=== PATIENT | male | born 1995 | race Two or more races ===

== ENCOUNTER 2023-06-24 23:10 | Emergency (ER) | payer BC ==
[~2023-06-24] VITALS: Ht 175.3 cm; Wt 86.2 kg
[2023-06-24 23:47] VITALS: BP 112/71; TEMP 97.6
[2023-06-25 01:07] LABS: APPEARANCE,URINE CLEAR (CLEAR); BILIRUBIN,URINE NEGATIVE (NEGATIVE); BLOOD, URINE NEGATIVE Ery/uL (NEGATIVE); COLOR,URINE YELLOW (YELLOW); KETONES,URINE NEGATIVE (NEGATIVE); LEUKOCYTE ESTERASE ,URINE NEGATIVE (NEGATIVE); NITRITE, URINE NEGATIVE (NEGATIVE); PROTEIN,URINE NEGATIVE (NEGATIVE); UGLUCOSE NEGATIVE (NEGATIVE); UROBILINOGEN,URINE 0.2 EU/dL (0.2)
[2023-06-25 01:26] VITALS: O2SAT 98
== END 2023-06-25 01:27 | disposition home or self-care (01) ==
LOC: ER 23:17
DX: R39.11 Hesitancy of micturition (principal); Z88.0 Allergy status to penicillin; Z60.2 Problems related to living alone